=== PATIENT | female | born 1970 | race Caucasian/White ===

== ENCOUNTER 2016-12-12 12:43 | Outpatient (CLI) ==
[2015-05-09 17:51] VITALS: BMI 56.3
[2016-12-12 13:48] LABS: BASOPHILS # (AUTO) 0.1 K/uL (0-0.2); BASOPHILS % (AUTO) 0.5 % (0.0-3.0); EOSINOPHILS # (AUTO) 0.3 K/ul (0.0-0.7); EOSINOPHILS % (AUTO) 2.4 % (0.0-7.0); HEMOGLOBIN 13.1 g/dl (12.0-16.0); IMMATURE GRANULOCYTE % (AUTO) 0.4 % (0.0-5.0); LYMPHOCYTES # (AUTO) 4.5 K/uL (0.60-3.4); LYMPHOCYTES % (AUTO) 42.6 (10.0-50.0); MEAN CORPUSCULAR HEMOGLOBIN 29.8 pg (27.0-31.0); MEAN CORPUSCULAR VOLUME 93.4 fl (81.0-99.0); MONOCYTES # (AUTO) 0.5 K/uL (0.4-2.0); MONOCYTES % (AUTO) 5.1 (0-10); NEUTROPHILS # (AUTO) 5.2 K/ul (2.0-6.9); PLATELET COUNT 499 10^3/uL (140-440); RED BLOOD COUNT 4.39 10^6/ul (4.20-5.40); WHITE BLOOD COUNT 10.63 K/ul (4.6-10.2)
[2016-12-12 16:13] LABS: ALBUMIN 3.6 g/dL (3.4-5.0); ALBUMIN/GLOBULIN RATIO 0.61; ANION GAP 15.4; BILIRUBIN,TOTAL 0.52 mg/dL (0.00-1.20); BUN/CREATININE RATIO 18.91; CALCIUM 9.5 mg/dL (8.2-10.2); CHOL/HDL RATIO 2.5 (4.5-5.5); CREATININE 0.74 mg/dL (0.60-1.30); POTASSIUM 4.4 mmol/L (3.5-5.10); TOTAL PROTEIN 9.5 g/dL (6.4-8.2)
[2016-12-12 16:14] LABS: FERRITIN 106.08 ng/mL (4.63-204.00)
== END 2016-12-12 12:44 | disposition home or self-care (01) ==
LOC: LAB 12:43
PROVIDERS: ATTEND Nurse Practitioner Family
DX: M54.5 Low back pain (principal); D64.9 Anemia, unspecified; E66.9 Obesity, unspecified
CPT/HCPCS: 36415; 80053; 80061; 82607; 82728; 83540; 83550; 84439; 84443; 84466; 85025

== ENCOUNTER 2016-12-13 13:41 | Outpatient (CLI) ==
[2015-05-09 17:51] VITALS: BMI 56.3
--- NOTE | 2016-12-14 02:39 | MRI ---
EXAM: MRI lumbar spine without IV contrast. DATE: 13 December 2016. HISTORY: Low back pain. TECHNIQUE: Sagittal and axial T1W and T2W sequences of the lumbar spine along with sagittal IR and coronal T2W sequences were obtained using 1.2 Roxana magnet. No IV contrast. COMPARISON: Thoracolumbar spine series 25 Feb 2016. FINDINGS: There are five [id number] lumbar vertebra. Marked (0 degrees) leftward curvature of the lower thoracic and lumbar spine is present, with the apex of curvature at L1-2. No acute lumba r fracture, subluxation, osseous malignancy, or pars interarticularis defect is identified. Lumbar vertebra are normal in height. Small right-sided osteophytes are seen at L1-2 and L2-3. Mild right -sided disc space narrowing is evident at T12-L1, L1-2, L2-3. Small, chronic Schmorl's nodes are pr esent at T11. No sacral fracture or stress reaction is apparent. SI joints are unremarkable. Conu s medullaris terminates at T12-L1. Visible spinal cord is normal. No retroperitoneal lymphadenopathy, paraspinal mass, or aortic aneurysm is detected. Psoas muscles are normal. There is minor right posterior paraspinal muscle atrophy. Visible portions of the live r, spleen, adrenal glands, and left kidney are normal. A low-lying right kidney is observed, with r ight renal artery arising from the aorta and the L4 level near the bifurcation. No renal mass or hy dronephrosis in either kidney. Mild pancreatic fatty infiltration is observed. No definitive pancr eatic mass. Segmental analysis: T11-12: Normal. T12-L1: Normal, except for minor facet arthropathy. L1-2: Normal, except for minor facet arthropathy. L2-3: Mild bilateral facet arthropathy and dorsal epidural fat cause mild thecal sac narrowing. Ea ch foramen is patent. L3-4: Mild facet arthropathy causes triangulation of the canal. Each foramen is patent. L4-5: Normal, except for mild facet arthropathy. L5-S1: Normal, except for mild facet arthropathy. IMPRESSIONS: 1. Thoracolumbar marked rotatory levoscoliosis, mild lumbar facet arthropathy, and minor DDD. 2. Mild central canal stenosis at L2-3. Triangulation of canal at L3-4. 3. No lumbar foraminal stenosis or nerve compression. 4. Right kidney is low-lying. No hydronephrosis or mass .
== END 2016-12-13 13:42 | disposition home or self-care (01) ==
LOC: RAD 13:41
PROVIDERS: ATTEND Nurse Practitioner Family
DX: M54.5 Low back pain (principal); D64.9 Anemia, unspecified; E66.9 Obesity, unspecified

== ENCOUNTER 2017-01-16 10:03 | Emergency (ER) ==
[2017-01-16 10:13] VITALS: BP 111/61; TEMP 97.7; BMI 57.9
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
--- NOTE | 2017-01-16 10:56 | DI ---
EXAM: Two x-rays of the chest. Comparison: X-rays performed 11/02/2014. Reason for study: Cough. FINDINGS: No pneumothorax. Similar appearing elevation of the right hemidiaphragm with an overlyin g density consistent with atelectasis The left lung is clear. The cardiac silhouette is unchanged. The osseous structures appear atraumatic. Poor inspiratory volumes. Impression: Right-sided atelectasis with elevation of the right hemidiaphragm. No obvious pneumoth orax.
== END 2017-01-16 11:27 | disposition home or self-care (01) ==
LOC: ED 10:03
DX: J06.9 Acute upper respiratory infection, unspecified (principal); J98.11 Atelectasis
CPT/HCPCS: 99283

== ENCOUNTER 2017-05-29 10:40 | Outpatient (CLI) ==
--- NOTE | 2017-05-29 11:06 | DI ---
Exam: Right hand three-view. HISTORY: Right hand pain. Findings: Three images of the right hand are submitted. These demonstrate no acute fracture or dis location. There is no osseous erosion or radiodense foreign body. There is no focal soft tissue sw elling. Impressions: No acute fracture or dislocation involving the right hand.
--- NOTE | 2017-05-29 11:06 | DI ---
EXAM: Radiographs, right wrist HISTORY: Right wrist pain. COMPARISON: None available. TECHNIQUE: Three views. FINDINGS: Bone mineralization is normal. No acute fracture dislocation identified. Healed fractur e deformity of the distal radial metaphysis noted. Old ununited ulnar styloid fracture noted. Join t spaces are maintained. Subcutaneous edema is seen in the dorsal and ulnar aspect of the forearm. IMPRESSION: 1. Subcutaneous edema of the forearm without acute osseous abnormality. 2. Old distal radial metaphyseal and ulnar styloid fractures.
== END 2017-05-29 10:41 | disposition home or self-care (01) ==
LOC: LAB 10:40
PROVIDERS: ATTEND Nurse Practitioner Family
DX: M79.641 Pain in right hand (principal); M67.441 Ganglion, right hand; M25.531 Pain in right wrist

== ENCOUNTER 2018-04-16 11:36 | Outpatient (CLI) ==
--- NOTE | 2018-04-19 09:34 | MAMMO ---
EXAM: Bilateral digital screening mammogram (2-D and 3-D) History: Screening Comparison: Bilateral mammogram 03/07/2016 Findings: MLO and CC views of bilateral breasts demonstrate predominately fatty replaced breast pare nchyma. CAD was reviewed by the radiologist. Tomosynthesis was performed. Stable benign bilateral breast lymph nodes. There are no dominant masses, no suspicious microcalcifications and no windows architect ural distortions Impression: Benign stable mammogram. Recommend followup routine screening mammography in 1 year. BIRADS 2
== END 2018-04-16 11:37 | disposition home or self-care (01) ==
LOC: RAD 11:36
PROVIDERS: ATTEND Advanced Practice Midwife
DX: Z12.31 Encounter for screening mammogram for malignant neoplasm of breast (principal)
CPT/HCPCS: 77067

== ENCOUNTER 2018-06-18 12:21 | Outpatient (CLI) | END 2018-06-18 12:22 | disposition home or self-care (01) | LOC: RHC-LAB 12:21 | PROVIDERS: ATTEND Nurse Practitioner Family | DX: E66.9 Obesity, unspecified (principal) | CPT/HCPCS: 36415; 80053; 80061; 84443; 85025 ==

== ENCOUNTER 2019-01-02 10:00 | Emergency (ER) ==
[2019-01-02 10:06] VITALS: BP 145/88; TEMP 98.5; BMI 56.9
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
[2019-01-02] MEDS: ALBUTEROL 0.083% NEB NEB STA (10:35)
--- NOTE | 2019-01-02 11:09 | DI ---
Exam: Two views of the chest. Comparison: 01/16/2017. Reason for exam: Short of breath. FINDINGS: There is elevation of the right hemidiaphragm with similar appearing right basilar atelect asis/pneumonia. These findings are not significantly changed when compared to imaging performed on 01/16/2017. No pneumothorax. The cardiac silhouette is not enlarged. Impression: Similar appearing right hemidiaphragmatic elevation with basilar atelectasis/pneumonia. No new cardi opulmonary process is seen on the exam.
== END 2019-01-02 11:50 | disposition home or self-care (01) ==
LOC: ED 10:00
DX: J45.909 Unspecified asthma, uncomplicated (principal); I10 Essential (primary) hypertension; Z98.84 Bariatric surgery status
CPT/HCPCS: 94640; 99282